=== PATIENT | female | born 1995 | race American Indian/Alaskan Native ===

== ENCOUNTER 2020-09-17 10:04 | Outpatient (CLI) | payer OTHER ==
[2020-09-17 12:21] VITALS: BP 122/60
[2020-09-17] MEDS ORDERED: LACTATED RINGERS 500 ML IV ONE (12:23)
[2020-09-17] MEDS ORDERED: ACETAMINOPHEN 500 MG TAB PO NR (12:46)
[2020-09-17 12:50] LABS: Bacteria,Urine 1+ /HPF (Negative); Bilirubin,Urine NEG (Negative); Blood,Urine NEG (Negative); Color,Urine Yellow (Yellow); Mucus,Urine 2+ /HPF; Urobilinogen,Urine < 2.0 mg/dL (<2.0)
== END 2020-09-17 14:20 | disposition home or self-care (01) ==
LOC: TRG 10:04 → APU 10:04 → TRG 14:20
DX: Z34.93 Encounter for supervision of normal pregnancy, unspecified, third trimester (principal); Z3A.29 29 weeks gestation of pregnancy
CPT/HCPCS: 59025; 81001; 87086

== ENCOUNTER 2020-09-17 11:25 | Emergency (ER) | payer OTHER | END 2020-09-17 11:35 | disposition left against medical advice (07) | LOC: ED 11:25 | DX: R51.9 Headache, unspecified (principal); Z53.21 Procedure and treatment not carried out due to patient leaving prior to being seen by health care provider; Z33.1 Pregnant state, incidental ==